=== PATIENT | female | born 1995 | race African-American/Black ===

== ENCOUNTER 2022-04-26 09:58 | Emergency (ER) | payer OTHER, SELFPAY ==
[2022-04-26 10:33] VITALS: BP 117/73; PULSE 97; RESP 19; TEMP 36.6; O2SAT 99; BMI 19.8
[2022-04-26 11:36] LABS: Alanine Aminotransferase 11 U/L (0-31); Albumin Level 4.5 g/dL (3.5-5.0); Alkaline Phosphatase 66 U/L (39-117); Anion Gap 9 (12-20); Aspartate Amino Transferase 17 U/L (5-31); Bilirubin Direct 0.3 mg/dL (0.0-0.5); Bilirubin Total 0.8 mg/dL (0.0-1.0); Blood Urea Nitrogen 10 mg/dL (9-16); Calcium 9.3 mg/dL (8.4-10.2); Carbon Dioxide 25 mmol/L (22-29); Chloride 105 mmol/L (96-108); Creatinine Clr Calc Pharmacy 98.2; Estimated Glomerular Filt Rate > 60; Glucose Random 91 mg/dL (60-115); Lipase 10 U/L (8-78); Potassium 4.4 mmol/L (3.3-5.1); Sodium 135 mmol/L (135-145); Total Protein 7.7 g/dL (6.5-8.0)
== END 2022-04-26 20:56 | disposition left against medical advice (07) ==
LOC: HO.ED 12:11
PROVIDERS: Emergency Provider Emergency Medicine
DX: R10.13 Epigastric pain (principal); Z79.899 Other long term (current) drug therapy
CPT/HCPCS: 36415; 80048; 80076; 83690; 99282; 99283

== ENCOUNTER 2023-09-22 13:59 | Outpatient (AMB) | payer BC, SELFPAY ==
[2023-09-22 14:01] VITALS: BP 112/70; PULSE 90; O2SAT 99; BMI 22.3
--- NOTE | 2023-09-22 14:01 | A.OFFPC_ITS ---
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 Allergies Unable to Assess Allergy (Verified 09/22/23 14:17) Medication List - Last Reconciled 09/22/23 by SEGUNDO Bustos No Known Home Meds Tobacco use date assessed: 09/22/23 Dental Screening Dental Screen Date: 09/22/23 Did you have a dental visit in the last 12 months?: Yes Did you have a dental problem in the last 6 months where you did not have access to dental care?: No Was dental information given to patient?: Patient has dentist 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 No PCP in a while per patient. Patient [facility]. Reports tetanus vaccine within 10 years. Reports eye and dental exams up-to-date. In addition, patient reports left breast lump for over 10 years now, no discomfort, no family history of breast cancer. No shortness of breath or chest pain. [facility] Surgical History No pertinent past surgical history Family History Mother No problems noted. Father No problems noted. Social History Patient Tobacco Use Status: Never used Tobacco Cognitive needs: No Hearing needs: No Vision needs: No Questionnaire PHQ-9 Over the last 2 weeks, how often have you been bothered by any of the following problems? 1. Little interest or pleasure in doing things: not at all 2. Feeling down, depressed, or hopeless: not at all 3. Trouble falling or staying asleep, or sleeping too much: not at all 4. Feeling tired or having little energy: not at all 5. Poor appetite or overeating: not at all 6. Feeling bad about yourself - or that you are a failure or have let yourself or your family down: not at all 7. Trouble concentrating on things, such as reading the newspaper or watching television: not at all 8. Moving or speaking so slowly that other people could have noticed. Or the opposite - being so fidgety or restless that you have been moving around a lot more than usual: not at all 9. Thoughts that you would be better off or of hurting yourself in some way: not at all Total score: 0 Depression Screening Interpretation: Negative Depression Screening Done: Yes 40989 - PHQ-9 Billing: Yes Source: Developed by Drs. Fidel Higuera, Jessica Riley, Isreal Seaman and colleagues, with an educational crys from [employer]. Thrive Questionnaire Date Thrive assessed: 09/22/23 I am a: Patient What is your living situation today?: I have a steady place to live Within the past 12 months, did the food you bought not last and you didn't have the money to get more?: Never true Within the past 12 months, did you worry whether your food would run out before you got money to buy more?: Never true Do you have trouble paying for medicines?: No Do you have trouble getting transportation to medical appointments?: No Do you have trouble paying your heating and electricity bill?: No Do you have trouble taking care of your child, family member or friend?: No Do you have trouble with day-to-day activities such as bathing, preparing meals, shopping, managing finances, etc.?: No Are you currently unemployed and looking for a job?: No Are you interested in more education?: No Currently or been in a relationship where the following occur: no concerns reported AUDIT C Alcohol Use Questionnaire (AUDIT-C) 1. How often do you have a drink containing alcohol?: 2-4 times a month 2. How many drinks containing alcohol do you have on a typical day when you are drinking?: 1 or 2 3. How often do you have six or more drinks on one occasion?: Never Total Score: 2 Score Reviewed/Action Taken: No NELSON-7 AMB Questionnaire NELSON-7 Date NELSON - 7 assessed: 09/22/23 Feeling nervous, anxious, or on edge: 0 = Not at all Not being able to stop or control worryin = Not at all Worrying too much about different things: 0 = Not at all Trouble relaxin = Not at all Being so restless that it is hard to sit still: 0 = Not at all Becoming easily annoyed or irritable: 0 = Not at all Feeling afraid as if something awful might happen: 0 = Not at all Total NELSON-7 score (0-4 normal; 5-9 mild; 10-14 moderate; 15-21 severe): 0 Source: Developed by Drs. Fidel Higuera, Jessica Riley, Isreal Seaman and colleagues, with an educational crys from [employer]. NELSON-7 Assessment Billing NELSON-7 Assessment Tool: NELSON-7 Assessment 01596 Review of Systems Const Denies body aches, Denies chills, Denies fever(s) and Denies headache(s) Eyes Denies change in vision ENT Denies dizziness, Denies otalgia, Denies headache(s), Denies nasal discharge, Denies sinus pain and Denies sore throat Card Denies chest pain, Denies edema, Denies lightheadedness and Denies dyspnea Resp Denies cough, Denies dyspnea and Denies wheezing GI Denies abdominal pain, Denies constipation, Denies diarrhea, Denies nausea and Denies vomiting Denies dysuria Musc Denies myalgias Skin/Breast Reports as per HPI and Denies rash Neuro Denies dizziness and Denies headache(s) Aller/Immun Denies wheezing Physical exam (Primary Care) Vital Signs: Last Vital Signs Pulse 90 09/22/23 14:01 BP 112/70 09/22/23 14:01 Pulse Ox 99 09/22/23 14:01 Oxygen Delivery Method Room Air 09/22/23 14:01 BMI result Body Mass Index 22.3 Tobacco/Smoking Status: Tobacco use Status Tobacco use date assessed 09/22/23 09/22/23 14:02 Patient Tobacco Use Status Never used Tobacco 09/22/23 14:02 PHQ-9: PHQ-9 Score PHQ-9: Total score 0 09/22/23 14:38 Depression Screening Interpretation: Negative Thrive Assessment: Date of Thrive Assessment Date Thrive assessed 09/22/23 09/22/23 14:02 Currently or been in a relationship where the following occur: no concerns reported Const General: cooperative and no acute distress Orientation/consciousness: patient oriented x3 [facility] Head: Yes normocephalic and Yes atraumatic Ears: TM's normal bilaterally Face and sinus: Yes sinuses nontender Mouth: oropharynx normal and moist mucous membranes Throat: Yes posterior oropharynx normal Eyes General: appearance normal, both eyes and all related structures Pupils: Equal, round and reactive pupils present EOM: EOMs intact bilaterally Neck Neck: Yes normal visual inspection, Yes full ROM and Yes no lymphadenopathy Thyroid: Thyroid normal Chest Breast/axilla inspection: normal inspection of the breasts and normal inspection of the axillae Breast/axilla palpation: normal palpation of the breasts (Right) and normal palpation of the axillae Chest/axillae images: 2 1. Left breast 10:00 o'clock nontender lump about 1 cm proximal to areola, skin intact Resp Effort & Inspection: normal respiratory effort and able to speak in complete sentences Auscultation: clear to auscultation bilaterally, no crackles, no rales, no rhonchi and no wheezes Cardio Rate: regular rate Rhythm: regular rhythm Heart sounds: S1 normal heart sound present, S2 normal heart sound present and no murmurs GI Palpation (GI): Soft to palpation, not firm, nontender, no guarding, not rigid and no hepatosplenomegaly Auscultation: normal bowel sounds General: No CVA tenderness Back/Spine/Pelvis Back: No CVA tenderness Skin General skin exam: no rashes or lesions noted Neuro General: patient oriented x3 Cranial nerves: Yes Equal, round and reactive pupils present Gait exam (Neuro): Normal gait present Extrem General: Yes full ROM and No edema Assessment and Plan Assessment & Plan (1) Left breast lump: Code(s): N63.20 - Unspecified lump in the left breast, unspecified quadrant Plan: Left breast 10:00 o'clock nontender lump about 1 cm, proximal to areola, skin intact Mammogram and ultrasound ordered (2) Adult general medical exam: Code(s): Z00.00 - Encounter for general adult medical examination without abnormal findings Plan: Repeat in 1 year Blood work ordered Orders: Orders 2 Vitamin D 25-OH Total 09/22/23 Z00.00 - Encounter for general adult medical examination without abnormal findings Complete Blood Count Auto Diff 09/22/23 Z00.00 - Encounter for general adult medical examination without abnormal findings US breast LT complete 09/22/23 N63.20 - Unspecified lump in the left breast, unspecified quadrant MM tomosynthesis diagnostic LT 09/22/23 N63.20 - Unspecified lump in the left breast, unspecified quadrant TSH reflex Free T4 09/22/23 Z00.00 - Encounter for general adult medical examination without abnormal findings Comprehensive Met. Panel 09/22/23 Z00.00 - Encounter for general adult medical examination without abnormal findings Coding Level of Care Code New Pt Prev Care 18-39yr([id number] Diagnoses Left breast lump N63.20 Adult general medical exam Z00.00 Additional Codes NELSON-7 Assessment Billing - NELSON-7 Assessment Tool: NELSON-7 Assessment 16712 ([id number])
== END 2023-09-22 14:42 | disposition home or self-care (01) ==
PROVIDERS: PCP Nurse Practitioner Family; Visit Provider Nurse Practitioner Family
DX: Z00.00 Encounter for general adult medical examination without abnormal findings (principal); N63.21 Unspecified lump in the left breast, upper outer quadrant
CPT/HCPCS: 99385

== ENCOUNTER → 2023-10-25 13:00 | Outpatient (BNV) | payer BC, SELFPAY | PROVIDERS: PCP Internal Medicine; Visit Provider Radiology Diagnostic Radiology | DX: N63.22 Unspecified lump in the left breast, upper inner quadrant (principal) | CPT/HCPCS: 76642 ==

== ENCOUNTER 2023-10-25 13:01 | Outpatient (REF) | payer BC, SELFPAY ==
--- NOTE | ~2023-10-25 | US_ITS ---
EXAMINATION: US DIAGNOSTIC ULTRASOUND BREAST, LEFT CLINICAL INFORMATION: 28-year-old female, palpable abnormality 10:00 axis left breast proximal to the areola. COMPARISON: None available. TECHNIQUE: Ultrasound of the breast is performed with real-time daley scale imaging and color Doppler. Attention was given to the upper inner quadrant of the left breast, and in specific to the palpable focus at 10:00. FINDINGS: There is a hypoechoic oval circumscribed mass in the left breast at the 10:00 axis, 3 cm from the nipple, measuring 2.2 x 1.2 x 1.8 cm. There is good through transmission. It is immediately subcutaneous. Trace color Doppler signal noted internally on color Doppler interrogation. Findings most likely represent a fibroadenoma or variant, and are correlating with the focus of palpable concern. Given the size of the mass, ultrasound-guided core biopsy recommended. Results are discussed with the patient at time of visit. US/US breast LT limited mamm only IMPRESSION: 2.2 cm probable fibroadenoma or variant in the 10:00 axis of the left breast, 3 cm from the nipple. Ultrasound-guided biopsy recommended for confirmation. This finding correlates with the focus of palpable concern. Findings and recommendations discussed with the patient. ASSESSMENT: BI-RADS 4: Suspicious RECOMMENDATION: Ultrasound-guided biopsy.
== END 2023-10-25 13:02 | disposition home or self-care (01) ==
LOC: HO.MAMMO 13:01
PROVIDERS: PCP Internal Medicine; Visit Provider Nurse Practitioner Family
DX: N63.22 Unspecified lump in the left breast, upper inner quadrant (principal)
CPT/HCPCS: 76642

== ENCOUNTER 2023-10-27 08:24 | Outpatient (AMB) | payer BC, SELFPAY ==
--- NOTE | 2023-10-27 08:27 | A.OFFVIS_ITS ---
Intake Vital Signs 10/27/23 08:37 Height 5 ft 9 in Weight 153 lb BMI 22.6 BP 106/72 Blood Pressure Location Lt brachial Position Sitting Pulse 87 Intake Visit Reasons: Lt breast US Bx 10 o'clock density Intake Note: Patient is seen in office for left breast ultrasound biopsy consult 10 o'clock density. Pt c/o: feel a lump in the left breast for years, denies increase/decrease, feels harder , denies redness, swelling, discoloration, discharge, no prior breast surgery, no children, no fm hx of breast cancer u/s:10/25/23 Ophthalmic Surgical Assistant Required: No Accompanied by: Self / Same As Patient Allergies Unable to Assess Allergy (Verified 10/27/23 08:37) HPI HPI Comments History of Present Illness Details 28-year-old female patient presenting wi th a palpable lump noted on recent physical examination. She 1st noted the lump approximately at the age of [age] years old and since this time she feels lesion may have gotten harder but not increased in size. She denies any pain, redness, discharge or other symptoms in the breast. Her family history is negative for breast cancer. She denies any previous breast problems or breast surgery. She is G0. An ultrasound of the left breast revealed a 2.2 x 1.2 x 1.8 cm mass well circumscribed, hypoechoic with good through transmission. Findings were felt to be suggestive of a fibroadenoma she is scheduled for an [facility] Surgical History No pertinent past surgical history Family History Mother No problems noted. Father No problems noted. Maternal Aunt Pancreatic cancer Social History Patient Tobacco Use Status: Never used Tobacco Cognitive needs: No Hearing needs: No Vision needs: No Female Reproductive History Menstrual Age of Menarche: 13 Date of last menstrual period: 10/27/23 Total pregnancies: 0 Review of Systems Const All systems reviewed & are unremarkable except as noted in HPI and below Denies chills, Denies fever(s), Denies headache(s), Denies poor appetite and Denies weakness ENT Denies headache(s) Card Denies chest pain, Denies irregular heart rhythm, Denies palpitations and Denies dyspnea Resp Denies cough, Denies excessive phlegm production and Denies dyspnea GI Denies abdominal pain, Denies bloating, Denies change in bowel habits, Denies constipation, Denies heartburn, Denies diarrhea, Denies nausea and Denies vomiting Denies urinary frequency Musc Denies back pain, Denies muscle weakness and Denies numbness Skin/Breast Denies changing lesions and Denies unusual bruising Neuro Denies headache(s), Denies numbness, Denies paresthesias and Denies weakness Psych Denies anxiety and Denies depression Endo Denies palpitations Wilian/Lymph Denies lymphadenopathy Physical Exam Vital Signs: Last Vital Signs Pulse 87 10/27/23 08:37 BP 106/72 10/27/23 08:37 BMI result Body Mass Index 22.6 Const General: cooperative and no acute distress Nutritional Appearance: well nourished Orientation/consciousness: patient oriented x3 Limitations: no limitations HEENT Head: Yes normocephalic and Yes atraumatic Ears: hearing grossly normal bilaterally Chest Other: Left breast: No skin change, no nipple retraction, no nipple discharge, palpable mass measuring approximately 2 cm located in the 11 o'clock to 10 o'clock position just be on the nipple-areolar complex. Lesion is quite superficial but mobile within the breast tissue. No enlarged lymph nodes. Right breast: No skin change, no nipple retraction, no nipple discharge, no pa lpable mass, no enlarged lymph nodes Resp Effort & Inspection: normal respiratory effort, no audible wheezes, no cough and no respiratory distress Cardio Jugular venous distension: no JVD GI Inspection: Yes normal to inspection Skin Other: Warm, dry, no rash Neuro General: patient oriented x3 Extrem General: Yes no clubbing, cyanosis or edema Assessment & Plan Assessment & Plan (1) Left breast lump: Code(s): N63.20 - Unspecified lump in the left breast, unspecified quadrant Qualifiers: Breast mass location: upper inner quadrant Qualified Code(s): N63.22 - Unspecified lump in the left breast, upper inner quadrant Plan 28-year-old female patient presenting with a longstanding palpable mass in the left breast. On examination this is smooth and mobile within the breast tissue suggestive of a fibroadenoma. Ultrasound of the left breast also confirms a discrete density measuring approximately 2.2 cm corresponding to the palpable density. She is scheduled for an ultrasound-guided core biopsy later today at the [facility]. She should return approximately 1 week to review the pathology results and discuss treatment options. She expressed understanding and agrees with the plan. Orders: Orders US breast ndl core biopsy LT Today N63.20 - Unspecified lump in the left breast, unspecified quadrant Coding Level of Care Code New Pt Level 4 (40918) Diagnoses Mass of upper inner quadrant of left breast N63.22 Breast mass location: upper inner quadrant
[2023-10-27 08:37] VITALS: BP 106/72; PULSE 87; BMI 22.6
== END 2023-10-27 08:52 | disposition home or self-care (01) ==
PROVIDERS: PCP Internal Medicine; Visit Provider Surgery
DX: N63.22 Unspecified lump in the left breast, upper inner quadrant (principal)
CPT/HCPCS: 99204

== ENCOUNTER → 2023-10-27 08:24 | Outpatient (BNVA) | payer BC, SELFPAY | PROVIDERS: PCP Internal Medicine; Visit Provider Surgery ==

== ENCOUNTER 2023-11-01 09:54 | Outpatient (REF) | payer BC, SELFPAY ==
--- NOTE | ~2023-11-01 | US_ITS ---
PROCEDURE: US GUIDED BREAST BIOPSY, LEFT CLINICAL INFORMATION: Subcutaneous hypoechoic mass left breast measuring 2.2 cm, probable fibroadenoma, for which biopsy was advised. COMPARISON: 10/25/2023 diagnostic left breast ultrasound. PROCEDURAL DETAILS: The details of the procedure, as well as the risks, benefits, and alternatives to the procedure were explained to the patient in detail and all of her questions were answered, after which written informed consent was obtained. Site and side were confirmed. Prior to the procedure, sonography revealed a hypoechoic circumscribed oval 2.2 cm mass just beneath the skin in the left breast 10:00 axis, 3 cm from the nipple. A time-out was performed, the lesion intended for biopsy was targeted, and the skin of the left breast was then marked, prepped and draped in the usual sterile fashion. Using sonographic guidance, sterile technique, and 1% lidocaine without epinephrine for local anesthesia, multiple core biopsies were obtained through the targeted area with a 14G spring loaded eCozyera core biopsy device. There was real-time confirmation of appropriate needle passage. Sampling was documented. At the completion of tissue sampling, a single butterfly-shaped metallic clip was deposited at the biopsy site. There was no evidence of immediate complication. SPECIMEN: 3 well formed core samples were obtained. DIGITAL POST-PROCEDURE MAMMOGRAPHY: Not performed due to patient age. Also, the lesion is somewhat obvious. The patient tolerated the procedure well and, after assuring adequate hemostasis, was discharged in good condition after reviewing postbiopsy breast care instructions. Final pathology results are pending. US/US breast ndl core biopsy LT IMPRESSION: 1. No immediate complication from ultrasound-guided percutaneous biopsy left breast 2.2 cm hypoechoic oval mass 10:00 axis. 2. Ultrasound was used to localize and guide marker clip placement. Clip appears centrally placed within the mass on ultrasound. 3. Final pathology results are pending. A separate report with final recommendations will be issued once these results are made available.
[2023-11-01] MEDS: Lidocaine HCl 1 % 20 ML VIAL 9 ML SUBCUT (11:03)
[2023-11-01] MEDS: Sodium Bicarbonate 8.4% 50 MEQ/50 ML VIAL SUBCUT (11:07)
== END 2023-11-01 09:55 | disposition home or self-care (01) ==
LOC: HO.MAMMO 09:54
PROVIDERS: PCP Internal Medicine; Visit Provider Surgery
DX: N63.22 Unspecified lump in the left breast, upper inner quadrant (principal)
CPT/HCPCS: 19083; 88305; A4648; C1894

== ENCOUNTER → 2023-11-01 10:00 | Outpatient (BNV) | payer BC, SELFPAY | PROVIDERS: PCP Internal Medicine; Visit Provider Radiology Diagnostic Radiology | DX: D24.2 Benign neoplasm of left breast (principal) | CPT/HCPCS: 19083 ==

== ENCOUNTER 2023-11-08 10:33 | Outpatient (AMB) | payer BC, SELFPAY ==
[2023-11-08 10:45] VITALS: BP 90/60; BMI 22.5
--- NOTE | 2023-11-08 10:45 | MHC.OFFVIS ---
Intake Vital Signs 11/08/23 10:45 Height 5 ft 9 in Weight 152 lb 1.903 oz BMI 22.5 BP 90/60 Blood Pressure Location Lt brachial Position Sitting Intake Visit Reasons: LT breast mass, US bx results Intake Note: Patient is seen in office for ultrasound biopsy results, following left breast mass. 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 She 1st noted the lump approximately at the age of [age] years old and since this time she feels lesion may have gotten harder but not increased in size. She denies any pain, redness, discharge or other symptoms in the breast. Her family history is negative for breast cancer. She denies any previous breast problems or breast surgery. She is G0. An ultrasound of the left breast revealed a 2.2 x 1.2 x 1.8 cm mass well circumscribed, hypoechoic with good through transmission. Findings were felt to be suggestive of a fibroadenoma. She was scheduled for a ultrasound-guided needle core biopsy on 11/01/2023. Pathology revealed: Benign fibroepithelial lesion. See comment. COMMENT: The stromal component is quite prominent and has a bit of a myxoid appearance. No atypia is identified. The differential diagnosis includes a fibroadenoma with an intracanalicular growth pattern and, less likely, a benign phyllodes tumor. Please correlate with clinical and imaging findings [facility] Surgical History No pertinent past surgical history Family History Mother No problems noted. Father No problems noted. Maternal Aunt Pancreatic cancer Social History Patient Tobacco Use Status: Never used Tobacco Cognitive needs: No Hearing needs: No Vision needs: No Female Reproductive History Menstrual Age of Menarche: 13 Review of Systems Const All systems reviewed & are unremarkable except as noted in HPI and below Physical Exam Vital Signs: Last Vital Signs BP 90/60 11/08/23 10:45 BMI result Body Mass Index 22.5 Const General: cooperative and no acute distress Nutritional Appearance: well nourished Orientation/consciousness: patient oriented x3 Limitations: no limitations HEENT Head: Yes normocephalic and Yes atraumatic Ears: hearing grossly normal bilaterally Chest Other: Left breast: No skin change, no nipple retraction, no nipple discharge, palpable mass measuring approximately 2 cm located in the 11 o'clock to 10 o'clock position just be on the nipple-areolar complex. Lesion is quite superficial but mobile within the breast tissue. No enlarged lymph nodes. Right breast: No skin change, no nipple retraction, no nipple discharge, no palpable mass, no enlarged lymph nodes Resp Effort & Inspection: normal respiratory effort, no audible wheezes, no cough and no respiratory distress Cardio Jugular venous distension: no JVD GI Inspection: Yes normal to inspection Skin Other: Warm, dry, no rash Neuro General: patient oriented x3 Extrem General: Yes no clubbing, cyanosis or edema Assessment & Plan Assessment & Plan (1) Left breast lump: Code(s): N63.20 - Unspecified lump in the left breast, unspecified quadrant Qualifiers: Breast mass location: upper inner quadrant Qualified Code(s): N63.22 - Unspecified lump in the left breast, upper inner quadrant Plan 28-year-old female patient presenting with a palpable mass in the left breast, status post ultrasound-guided core biopsy. 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 I reviewed the pathology results and provided her with a copy of the report. We discussed excision of this possible phyllodes tumor as the safest option and after discussion of the procedure, risks, and alternatives, she consents to a left breast lumpectomy to be performed as a short-stay surgery. Coding Level of Care Code Est Pt Level 4 (87715) Diagnoses Mass of upper inner quadrant of left breast N63.22 Breast mass location: upper inner quadrant
== END 2023-11-08 10:59 | disposition home or self-care (01) ==
PROVIDERS: PCP Internal Medicine; Visit Provider Surgery
DX: N63.22 Unspecified lump in the left breast, upper inner quadrant (principal)
CPT/HCPCS: 99214

== ENCOUNTER → 2023-11-08 10:33 | Outpatient (BNVA) | payer BC, SELFPAY | PROVIDERS: PCP Internal Medicine; Visit Provider Surgery ==

== ENCOUNTER 2023-11-23 06:13 | Day surgery (SDC) | payer BC, SELFPAY ==
[2023-11-21 09:13] VITALS: BMI 22.3
--- NOTE | 2023-11-22 08:46 | HO.ANESPROP2 ---
Documented by User: Yoana Cueto NP 11/22/23 08:46 HPI - Anesthesia Eval Consult details Narrative: 28yo F for Left Breast Lumpectomy PMFSH Active Problems Active Problems: All Active Problems (Updated 10/27/23 @ 08:52 by Montez Stewart MD) Left breast lump (Acute) Adult general medical exam (Acute) Family History Family History Mother No problems noted. Father No problems noted. Maternal Aunt Pancreatic cancer Surgical History Surgical History (Updated 11/23/23 @ 06:21 by Patricia Garnett RN) History of wisdom tooth extraction No pertinent past surgical history Social History Social History Patient Tobacco Use Status: Never used Tobacco Use of substances other than those prescribed or required for medical reasons: No Are you DNR?: No Advance Directives: No Advance Directives Information Provided: Yes Cognitive needs: No Hearing needs: No Vision needs: No Meds Allergies Allergy/AdvReac Type Severity Reaction Status Date / Time No Known Allergies Allergy Verified 11/08/23 10:46 Home Medications Medication Instructions Recorded Confirmed Last Taken Type No Known Home Meds 09/22/23 11/08/23 Unknown History Exam Height,Weight and Vital Signs: Height 5 ft 9 in Weight 68.492 kg Assessment and Plan Assessment Anesthesia Assessment: Chart Reviewed Documented by User: Alirio Rouse MD 11/23/23 06:56 PMFSH Family History Family History Mother No problems noted. Father No problems noted. Maternal Aunt Pancreatic cancer Family history of problems with anesthesia: No Surgical History Surgical History (Updated 11/23/23 @ 06:21 by Patricia Garnett RN) History of wisdom tooth extraction No pertinent past surgical history History of Problems with Anesthesia: No Social History Social History Patient Tobacco Use Status: Never used Tobacco Use of substances other than those prescribed or required for medical reasons: No Are you DNR?: No Advance Directives: No Advance Directives Information Provided: Yes Cognitive needs: No Hearing needs: No Vision needs: No Meds Allergies Allergy/AdvReac Type Severity Reaction Status Date / Time No Known Allergies Allergy Verified 11/08/23 10:46 Home Medications Medication Instructions Recorded Confirmed Last Taken Type No Known Home Meds 09/22/23 11/08/23 Unknown History Exam Airway Mallampati Class: II TM Dist: >3cm Neck ROM: Full Loose/Missing/Broken Teeth: No Heart: rrr Lungs: cta b/l Assessment and Plan Assessment Anesthesia Assessment: Anesthesia Plan Discussed and Chart Reviewed Final Anesthetic Review Family History of Problems with Anesthesia: No History of Problems with Anesthesia: No NPO: Yes ASA Class: I Final Preanesthetic Review: No Changes in Pt Med Stat, Consent Obtained/Reviewed and Anes Risks/Benef Reviewed Patient Risk: Low Procedure Risk: Low Anesthetic Plan Anesthetic Plan: GA and Agree w/ Assess. and Plan Disposition: Standard PACU
[2023-11-23] VITALS (13 sets, daily range): BP systolic 79–109; BP diastolic 52–63; PULSE 77–96; RESP 16–18; TEMP 36.4–37.1; O2SAT 98–100; BMI 23.9
[2023-11-23 06:38] LABS: UPreg QC Valid YES; Urine Pregnancy NEGATIVE (NEGATIVE)
[2023-11-23] MEDS: Lactated Ringers 1,000 ML 100 ML IVCONT (07:04)
--- NOTE | 2023-11-23 07:21 | MHC.SHP ---
Pre-Procedural Eval Section A - 24 Hr Update-Section A only Date of Service: 11/23/23 The patient is an INPATIENT: No Changes since office visit: Yes Patient answered all questions; No Cold of Flu in the past 2 weeks, No New Medical Problems and No Changes in Medication The patient has been examined within 24 hours of the surgical procedure. The History & Physical has been completed within 30 days and I have reviewed it.: Yes Section B - Complete if H&P > 30 days Chief Complaint: Unspecified lump in the left breast, upper inner q Allergies: Allergies Allergy/AdvReac Type Severity Reaction Status Date / Time No Known Allergies Allergy Verified 11/08/23 10:46 Plan Diagnosis/Plan: Unchanged I have reviewed the history and physical and performed a pertinent physical examination on my patient. No changes have occurred unless specified. Time Spent With Patient Time: Total time managing care of this patient today ____ minutes.
--- NOTE | 2023-11-23 08:13 | W.PM.OPN ---
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 Recent biopsy revealed a probable fibroadenoma although phyllodes tumor was a possibility. After discussion of the options the patient has decided for lumpectomy. Operative findings: Palpable mass in the left breast 11:00 o'clock, path pending Specimen: Left breast lump Estimated blood loss: 2 mL Complications: None Procedure details: Patient was brought to the OR placed in a supine position. After administering general anesthesia the patient's left breast was prepped with ChloraPrep and draped in a sterile fashion. A surgical time-out was called the consent confirmed. Patient received preoperative antibiotics and Venodyne boots were in place. Local anesthesia was infiltrated in a curvilinear fashion along the areolar border. This was done from the 10 to 12 o'clock position. Incision was then made with a 15 blade and carried out through subcutaneous tissue. Superior and inferior skin flaps were then created with electrocautery. Dissection was continued using both sharp and electrocautery dissection to remove the entire palpable lump. This was sent to pathology for further examination. Hemostasis was assured using electrocautery. Wounds were irrigated with saline solution and suctioned dry. Deep breast tissue was then reapproximated using interrupted 3-0 Polysorb sutures. Dermis was reapproximated using interrupted 3-0 Polysorb sutures. Skin was then closed using a running subcuticular 4-0 Polysorb suture. Steri-Strips, 2 x 2 gauze and Tegaderm were then applied. The patient tolerated the procedure well. Sponge, instrument, and needle counts reported as correct. The patient was transferred to PACU in stable condition.
[2023-11-23] MEDS: fentaNYL citrate/PF 100 MCG/2 ML VIAL 25 MCG IVPUSH (08:55)
[2023-11-23] MEDS: oxyCODONE HCl Immed Release 5 MG TABLET PO (09:18)
== END 2023-11-23 11:07 | disposition home or self-care (01) ==
PROVIDERS: Nurse Practitioner; PCP Internal Medicine; Visit Provider Surgery
PROC: (CPT 19301; principal; 2023-11-23 07:30)
DX: N63.22 Unspecified lump in the left breast, upper inner quadrant (principal); D24.2 Benign neoplasm of left breast
CPT/HCPCS: 19301; 81025; 88305; 88307; J0131; J0665; J0690; J2250; J2405; J2704; J3010

== ENCOUNTER → 2023-11-23 06:13 | Outpatient (BNV) | payer BC, SELFPAY | PROVIDERS: PCP Internal Medicine; Visit Provider Surgery | DX: N63.22 Unspecified lump in the left breast, upper inner quadrant (principal) | CPT/HCPCS: 19301 ==

== ENCOUNTER 2023-12-01 10:00 | Outpatient (AMB) | payer BC, SELFPAY ==
--- NOTE | 2023-12-01 10:25 | A.OFFVIS_ITS ---
Intake Vital Signs 12/01/23 10:31 Height 5 ft 8 in Weight 156 lb BMI 23.7 BP 110/71 Blood Pressure Location Lt brachial Position Sitting Pulse 102 H Intake Visit Reasons: S/p Left breast lumpectomy Intake Note: Patient is seen in office for post op assessment post left breast lumpectomy. Pt c/o: admits to sore, tender, bruise, denies redness, discharge or other concerns Op:11/23/23 Mercury Washer Required: No Accompanied by: Self / Same As Patient Allergies No Known Allergies Allergy (Verified 11/08/23 10:46) HPI HPI Comments History of Present Illness Details 28-year-old female patient presenting wi th a palpable lump noted on recent physical examination. She 1st noted the lump approximately at the age of [age] years old and since this time she feels lesion may have gotten harder but not increased in size. She denies any pain, redness, discharge or other symptoms in the breast. Her family history is negative for breast cancer. She denies any previous breast problems or breast surgery. She is G0. An ultrasound of the left breast revealed a 2.2 x 1.2 x 1.8 cm mass well circumscribed, hypoechoic with good through transmission. Findings were felt to be suggestive of a fibroadenoma. She was scheduled for a ultrasound-guided needle core biopsy on 11/01/2023. Pathology revealed: Benign fibroepithelial lesion. See comment. COMMENT: The stromal component is quite prominent and has a bit of a myxoid appearance. No atypia is identified. The differential diagnosis includes a fibroadenoma with an intracanalicular growth pattern and, less likely, a benign phyllodes tumor. Please correlate with clinical and imaging findings She subsequently underwent a left breast lumpectomy performed 1 week ago on 11/23/2023. She returns today for wound check. Pathology results are pending although in communication with Dr. Garcia, findings do appear consistent with a benign phyllodes tumor. He has sent the specimen to [facility] for further examination. She tolerated the surgery well and denies any ongoing breast symptoms at this time. [facility] Surgical History History of lumpectomy of left breast (11/23/23) History of wisdom tooth extraction Family History Mother No problems noted. Father No problems noted. Maternal Aunt Pancreatic cancer Social History Patient Tobacco Use Status: Never used Tobacco Cognitive needs: No Hearing needs: No Vision needs: No Female Reproductive History Menstrual Age of Menarche: 13 Physical Exam Vital Signs: Last Vital Signs Pulse 102 H 12/01/23 10:31 BP 110/71 12/01/23 10:31 BMI result Body Mass Index 23.7 Const General: comfortable Nutritional Appearance: well nourished Orientation/consciousness: patient oriented x3 Limitations: no limitations Chest Other: Left breast incision is clean, dry, and intact. Steri-Strips remain in place. There is a small amount of ecchymosis in the upper inner quadrant. Resp Effort & Inspection: normal respiratory effort Skin Other: Warm, dry, no rash Neuro General: patient oriented x3 Assessment & Plan Assessment & Plan (1) Benign phyllodes tumor of left breast: Code(s): D24.2 - Benign neoplasm of left breast Plan 28-year-old female patient with a probable benign phyllodes tumor of the left breast status post excision. I reviewed the pathology results and discuss possible treatment options. We will await the final pathology from [facility]. She will follow-up in 3 months for routine breast examination. I will call her with the results once available. Coding Level of Care Code Global (62096) Diagnoses Benign phyllodes tumor of left breast D24.2
[2023-12-01 10:31] VITALS: BP 110/71; PULSE 102; BMI 23.7
== END 2023-12-01 10:47 | disposition home or self-care (01) ==
PROVIDERS: PCP Internal Medicine; Visit Provider Surgery
DX: D24.2 Benign neoplasm of left breast (principal)
CPT/HCPCS: 99024

== ENCOUNTER → 2023-12-01 10:00 | Outpatient (BNVA) | payer BC, SELFPAY | PROVIDERS: PCP Internal Medicine; Visit Provider Surgery | DX: N63.22 Unspecified lump in the left breast, upper inner quadrant (principal) ==

== ENCOUNTER 2024-03-01 10:12 | Outpatient (AMB) | payer BC, SELFPAY ==
--- NOTE | 2024-03-01 10:13 | MHC.OFFVIS ---
Vital Signs 03/01/24 10:24 Height 5 ft 8 in Weight 69 lb 6 oz BMI 10.5 BP 126/59 L Blood Pressure Location Lt brachial Position Sitting Pulse 95 Intake Visit Reasons: 3 month follow up, breast exam Intake Note: Patient is seen in office for 3 month follow up visit, breast exam. 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 She 1st noted the lump approximately at the age of [age] years old and since this time she feels lesion may have gotten harder but not increased in size. She denies any pain, redness, discharge or other symptoms in the breast. Her family history is negative for breast cancer. She denies any previous breast problems or breast surgery. She is G0. An ultrasound of the left breast revealed a 2.2 x 1.2 x 1.8 cm mass well circumscribed, hypoechoic with good through transmission. Findings were felt to be suggestive of a fibroadenoma. She was scheduled for a ultrasound-guided needle core biopsy on 11/01/2023. Pathology revealed: Benign fibroepithelial lesion. See comment. COMMENT: The stromal component is quite prominent and has a bit of a myxoid appearance. No atypia is identified. The differential diagnosis includes a fibroadenoma with an intracanalicular growth pattern and, less likely, a benign phyllodes tumor. Please correlate with clinical and imaging findings She subsequently underwent a left breast lumpectomy performed on 11/23/2023. She returns today for wound check. Path results are suggestive of a benign phyllodes tumor. This was evaluated in [place] as well and no wider excision felt to be required. She returns today for a three-month check. She does note some hardness in the incision but generally denies any pain. [facility] Surgical History History of lumpectomy of left breast (11/23/23) History of wisdom tooth extraction Family History Mother No problems noted. Father No problems noted. Maternal Aunt Pancreatic cancer Social History Patient Tobacco Use Status: Never used Tobacco Cognitive needs: No Hearing needs: No Vision needs: No Female Reproductive History Menstrual Age of Menarche: 13 Review of Systems Const All systems reviewed & are unremarkable except as noted in HPI and below Physical Exam Const General: comfortable Nutritional Appearance: well nourished Orientation/consciousness: patient oriented x3 Limitations: no limitations Chest Other: Left breast incision is clean, dry, and intact. Wound is well healed with a small healing ridge remaining. No palpable phyllodes tumor is appreciated. No other palpable mass noted. Resp Effort & Inspection: normal respiratory effort Skin Other: Warm, dry, no rash Neuro General: patient oriented x3 Assessment & Plan Assessment & Plan (1) Benign phyllodes tumor of left breast: Code(s): D24.2 - Benign neoplasm of left breast Category: Medical Plan 28-year-old female patient with a previous history of a benign phyllodes tumor of the left breast status post lumpectomy. Her wounds are clean and intact with residual healing ridge but no evidence of recurrent disease. I recommended she continue monthly self examinations. She is welcome to call for any new concerns. Coding Level of Care Code Est Pt Level 3 (33594) Diagnoses Benign phyllodes tumor of left breast D24.2
[2024-03-01 10:24] VITALS: BP 126/59; PULSE 95; BMI 10.5
== END 2024-03-01 10:27 | disposition home or self-care (01) ==
PROVIDERS: PCP Internal Medicine; Visit Provider Surgery
DX: D24.2 Benign neoplasm of left breast (principal)
CPT/HCPCS: 99213

== ENCOUNTER → 2024-03-01 10:12 | Outpatient (BNVA) | payer BC, SELFPAY | PROVIDERS: PCP Internal Medicine; Visit Provider Surgery | DX: N63.22 Unspecified lump in the left breast, upper inner quadrant (principal) ==

== ENCOUNTER 2024-07-25 11:36 | Outpatient (AMB) | payer BC, SELFPAY ==
[2024-07-25 11:45] VITALS: BP 100/68; BMI 23.3
--- NOTE | 2024-07-25 11:45 | A.OFFVIS_ITS ---
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 [facility] for [facility]Ds. Her last period came last Tuesday in it ended on Tuesday and her periods are very regular and she tracks them and a track she does not want to talk about any method of control and does not need control she says she sometimes uses condoms. She has had BV in the past but has no symptoms of it now. Sometime recently she had what appeared to be a cold sore on her lip and [facility] and she said they did a lot of blood work and said that it was not but they given her a cream that caused her lips to swell She said she had a breast mass removed last year she had had it for a long time but the surgery went well and it was non cancerous. 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 She works out in the gym and has a on air personality every morning she eats very well and her small engine trainer advises her dietary adjustments. [facility] Surgical History (Updated 07/25/24 @ 12:34 by Terri Snell CNM) History of lumpectomy of left breast (11/23/23) History of wisdom tooth extraction Family History Mother No problems noted. Father No problems noted. Maternal Aunt Pancreatic cancer Social History Patient Tobacco Use Status: Never used Tobacco Cognitive needs: No Hearing needs: No Vision needs: No Female Reproductive History Menstrual Age of Menarche: 13 Duration of menses: 3-5 days Date of last menstrual period: 07/20/24 control method: none Total pregnancies: 0 History of abnormal pap smear: No (no previous pap) Physical Exam Vital Signs: Last Vital Signs BP 100/68 07/25/24 11:45 BMI result Body Mass Index 23.3 Const General: healthy appearing, comfortable, no acute distress, well developed and alert Nutritional Appearance: average body habitus Orientation/consciousness: patient oriented x3 Limitations: no limitations HEENT Head: Yes normocephalic Neck Neck: Yes normal visual inspection Chest Chest palpation & inspection: normal inspection of the chest Breast/axilla inspection: normal inspection of the breasts and normal inspection of the axillae Breast/axilla palpation: normal palpation of the breasts and normal palpation of the axillae Resp Effort & Inspection: normal respiratory effort GI Inspection: Yes normal to inspection, No Abdominal wall edema and No distended Palpation (GI): Soft to palpation and nontender Other: External exam within normal limits vagina pink and moist evidence of recent menses. Cervix nulliparous long close the pink mobile nontender friable with Pap. Uterus small midposition nontender adnexa nontender very good tone Kegel. General: Yes bladder normal to palpation External Female Exam: normal external appearance and normal appearance of the urethra Speculum Exam - Vagina: normal appearance of the vagina, normal palpation and normal vaginal discharge Speculum Exam - Cervix: normal appearance of the cervix, normal palpation and nontender Bimanual exam- vagina & uterus: normal bimanual exam, normal palpation, uterine size normal, bladder normal to palpation, consistency normal, normal palpation, uterine mobility normal, uterine shape normal, No Cervical tenderness present, non-tender and no cervical motion tenderness Bimanual Exam- Adnexa, other: normal adnexae, no masses, normal and No adnexal tenderness Neuro General: patient oriented x3 Assessment & Plan Assessment & Plan (1) Screening for cervical cancer: Code(s): Z12.4 - Encounter for screening for malignant neoplasm of cervix Category: Medical (2) Well woman exam with routine gynecological exam: Code(s): Z01.419 - Encounter for gynecological examination (general) (routine) without abnormal findings Category: Medical (3) Uses condoms for control: Code(s): Z78.9 - Other specified health status Category: Social Hx Plan -----Discussed in this visit the following: healthy balanced diet, regular and consistent exercise, getting recommended health screens, doing the best she can for her particular health concerns, kegel exercises, pap smear screening and followup recommendations, mammography screening and SBE, normal changes in cycles in her life stage--- . Teaching done around cervical cancer screening in the HPV vaccine she does think she got vaccinated she was told that she should get checked to see if all her vaccinations are up-to-date so she tends to have a discussion with her primary care provider about that as it seems that 1 of the titers must have shown some lack of immunity. Discussed cervical cancer screening guidelines and how they have changed over the years and rationale for longer times between screening test. Teaching was done around HSV both oral and genital and natural history of same and how it is shared between human beings and usual testing regimens and treatments. Discussed factors that can lead to recurrences of outbreaks for general information purposes. She is not interested in any control method and did not want to discuss any other methods if she got she would either continue the or [facility] and she has access Discussed that we do not have a birthing center [facility] and that young women with the 1st would be well advised to seek care at [facility] for there care from the very start and discussed the very many excellent practices available at [facility] for this. Discussed intervals for cervical cancer screening which would be next for her in 3 years though we do say come back every year for poured concrete wall technician exams for much the same discussion as today. Coding Level of Care Code New Pt Prev Care 18-39yr([id number] Diagnoses Screening for cervical cancer Z12.4 Well woman exam with routine gynecological exam Z01.419 Uses condoms for control Z78.9
== END 2024-07-25 12:30 | disposition home or self-care (01) ==
PROVIDERS: PCP Internal Medicine; Visit Provider Advanced Practice Midwife
DX: Z12.4 Encounter for screening for malignant neoplasm of cervix (principal); Z01.419 Encounter for gynecological examination (general) (routine) without abnormal findings; Z78.9 Other specified health status
CPT/HCPCS: 99385

== ENCOUNTER 2024-07-25 11:36 | Outpatient (REF) | payer BC, SELFPAY ==
[2024-07-26 05:49] LABS: CT PCR NOT DETECTED (Not Detect.); NG PCR NOT DETECTED (Not Detect.)
[2024-07-26 10:47] LABS: Bacterial Vaginosis PCR NEGATIVE (Negative); Candida Group PCR DETECTED (Not Detect); Candida glab krusei PCR NOT DETECTED (Not Detect); Trichomonas vaginalis PCR NOT DETECTED (Not Detect)
== END 2024-07-25 11:37 | disposition home or self-care (01) ==
LOC: HO.LAB 11:36
PROVIDERS: PCP Internal Medicine; Visit Provider Advanced Practice Midwife
DX: N89.8 Other specified noninflammatory disorders of vagina (principal); Z20.2 Contact with and (suspected) exposure to infections with a predominantly sexual mode of transmission
CPT/HCPCS: 0352U; 36415; 87491; 87591; 87625; 88175

== ENCOUNTER 2024-09-12 11:39 | Outpatient (AMB) | payer BC, SELFPAY ==
[2024-09-12 11:49] VITALS: BP 116/70; PULSE 80; O2SAT 97; BMI 23.4
--- NOTE | 2024-09-12 11:49 | A.OFFPC_ITS ---
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 She noticed a recurrent lesion on her lip, characterized by a white discoloration, which comes and goes without any apparent reason. The lesion is not associated with pain, tenderness, or crusting but has been persistent over time. The patient has attempted topical treatments, including a cream assumed to treat cold sores, which led to irritation and swelling, prompting discontinuation. Past consultations suggested seeing a bag hanger as the lesion may not be a simple cold sore. Additionally, the patient reports being advised of low hepatitis B titers and the need for a vaccination. She does not report any significant medical conditions other than recurrent yeast infections following a recent Pap smear. [facility] Surgical History History of lumpectomy of left breast (11/23/23) History of wisdom tooth extraction Family History Mother No problems noted. Father No problems noted. Maternal Aunt Pancreatic cancer Social History (Updated 09/12/24 @ 12:00 by Maame Swain MD) Housing: Apartment Alcohol intake: current Alcohol intake frequency: a few times a month Alcohol type: hard liquor Patient Tobacco Use Status: Never used Tobacco service: No Current occupational status: employed Cognitive needs: No Hearing needs: No Vision needs: No Female Reproductive History Menstrual Age of Menarche: 13 Questionnaire Thrive Questionnaire Date Thrive assessed: 09/22/23 AUDIT C Alcohol Use Questionnaire (AUDIT-C) 1. How often do you have a drink containing alcohol?: 2-4 times a month 2. How many drinks containing alcohol do you have on a typical day when you are drinking?: 1 or 2 3. How often do you have six or more drinks on one occasion?: Never Total Score: 2 Score Reviewed/Action Taken: No NELSON-7 AMB Questionnaire NELSON-7 Date NELSON - 7 assessed: 09/22/23 Source: Developed by Drs. Fidel Higuera, Jessica Riley, Isreal Seaman and colleagues, with an educational crys from [employer]. Review of Systems Const All systems reviewed & are unremarkable except as noted in HPI and below Card Denies chest pain at rest, Denies chest pain with activity, Denies edema, Denies irregular heart rhythm, Denies claudication, Denies dyspnea, Denies dyspnea on exertion, Denies orthopnea, Denies paroxysmal nocturnal dyspnea and Denies slow heart rate Resp Denies cough, Denies dyspnea and Denies dyspnea on exertion GI Denies abdominal pain, Denies change in bowel habits, Denies excessive flatus, Denies nausea and Denies vomiting Skin/Breast Reports lesions Physical exam (Primary Care) Vital Signs: Last Vital Signs Pulse 80 09/12/24 11:49 BP 116/70 09/12/24 11:49 Pulse Ox 97 09/12/24 11:49 Oxygen Delivery Method Room Air 09/12/24 11:49 BMI result Body Mass Index 23.4 Tobacco/Smoking Status: Tobacco use Status Tobacco use date assessed 09/12/24 09/12/24 11:55 Patient Tobacco Use Status Never used Tobacco 09/12/24 12:00 Thrive Assessment: Date of Thrive Assessment Date Thrive assessed 09/22/23 09/12/24 11:55 [facility] Mouth: lip abnormal (upper lip papular lesion) Resp Effort & Inspection: normal respiratory effort Auscultation: clear to auscultation bilaterally Cardio Jugular venous distension: no JVD Rate: regular rate Rhythm: regular rhythm Heart sounds: S1 normal heart sound present and S2 normal heart sound present Extrem General: Yes full ROM Coding Level of Care Code Est Pt Level 3 (67977) Complex EM visit Add On G2211 Diagnoses Lip lesion K13.0 Seborrheic dermatitis of scalp L21.9 Time Spent (min) 19 Assessment & Plan Assessment & Plan (1) Lip lesion: Code(s): K13.0 - Diseases of lips Category: Medical (2) Seborrheic dermatitis of scalp: Code(s): L21.9 - Seborrheic dermatitis, unspecified Category: Medical Plan - Lip Lesion: Referral to dermatology for further evaluation to rule out other dermatological conditions. - Hepatitis B: Administer hepatitis B vaccination due to low immunity levels. - Seborrheic Dermatitis: Prescription for a medicated shampoo to manage scalp symptoms. Patient was informed and verbally consented to the use of an ambient scribe for clinic note documentation during this visit. I discussed the recurrent lip lesion with the patient, emphasizing the importance of specialist evaluation for proper diagnosis, considering differential possibilities such as chronic dermatological conditions which could not be identified as a cold sore. I advised the patient on the intention to consult with a bag hanger for further examination and potential biopsy. Additionally, I confirmed the recommendation for a hepatitis B vaccination due to low titers to ensure immunity. We also addressed seborrheic dermatitis and the plan to initiate treatment with a prescribed shampoo to manage symptoms. Orders: Orders Complete Blood Count Auto Diff 09/12/24 K13.0 - Diseases of lips Comprehensive Met. Panel 09/12/24 K13.0 - Diseases of lips Referrals Dermatology Referral K13.0 - Diseases of lips Medications: New selenium sulfide 2.25% massage into affected area; leave on for 10 mins ; rinse off thoroughly 1 appl topical DAILY 180 mL 1RF 30 days K13.0 - Diseases of lips, L21.9 - Seborrheic dermatitis, unspecified Patient Instructions: - Follow up with dermatology for assessment of the lip lesion. - Receive the hepatitis B vaccine as advised. - Use the prescribed shampoo as directed for scalp condition. - Report any changes or concerns with skin lesions immediately.
== END 2024-09-12 12:09 | disposition home or self-care (01) ==
PROVIDERS: PCP Internal Medicine; Visit Provider Internal Medicine
DX: K13.0 Diseases of lips (principal); L21.9 Seborrheic dermatitis, unspecified

== ENCOUNTER 2024-10-23 14:25 | Outpatient (REF) | payer BC, SELFPAY ==
[2024-10-23 16:08] LABS: MANUAL DIFF FLAG NO
[2024-10-23 16:17] LABS: Basophils Absolute Auto 0.1 X10*3/uL (0.0-0.2); Eosinophils Absolute Auto 0.1 X10*3/uL (0.0-0.4); Eosinophils Percent Auto 1.2 % (0-4); Hematocrit 31.9 % (37.0-47.0); Hemoglobin 10.7 g/dl (12.0-16.0); Imm Gran Abs Auto 0.01 X10*3/uL (0.00-0.03); Imm Gran Pct Auto 0.2 % (0.0-0.4); Lymphocytes Absolute Auto 1.8 X10*3/uL (1.2-4.9); Lymphocytes Percent Auto 36.5 % (20-40); Mean Corpuscular HGB Conc 33.5 g/dl (31.0-35.0); Mean Corpuscular Volume 80.4 fL (80.0-98.0); Monocytes Absolute Auto 0.3 X10*3/uL (0.1-1.2); Neutrophils Absolute Auto 2.7 x10*3/uL (2.0-8.3); Neutrophils Percent Auto 55.1 % (45-73); Platelet Count 259 X10*3/uL (160-400); Red Blood Count 3.97 X10*6/uL (4.20-5.50); Red Cell Distribution Width 14.1 % (11.0-16.0); White Blood Count 4.9 X10*3/uL (4.8-10.8)
[2024-10-23 17:11] LABS: Alanine Aminotransferase 12 U/L (0-31); Albumin Level 4.1 g/dL (3.5-5.0); Anion Gap 9 (12-20); Aspartate Amino Transferase 30 U/L (5-31); Bilirubin Total 0.6 mg/dL (0.0-1.0); Blood Urea Nitrogen 8 mg/dL (9-16); Carbon Dioxide 23 mmol/L (22-29); Chloride 112 mmol/L (96-108); Estimated Glomerular Filt Rate > 60; Glucose Random 87 mg/dL (60-115); Potassium 3.7 mmol/L (3.3-5.1); Sodium 140 mmol/L (135-145); Total Protein 7.3 g/dL (6.5-8.0)
[2024-10-23 17:22] LABS: Alkaline Phosphatase 66 U/L (39-117)
== END 2024-10-23 14:26 | disposition home or self-care (01) ==
LOC: HO.HMGCLDS 14:25
PROVIDERS: PCP Internal Medicine; Visit Provider Internal Medicine
DX: K13.0 Diseases of lips (principal)
CPT/HCPCS: 36415; 80053; 85025

== ENCOUNTER 2025-07-31 11:02 | Outpatient (AMB) | payer MEDICAID, SELFPAY ==
[2025-07-31 11:03] VITALS: BP 110/66; BMI 23.2
--- NOTE | 2025-07-31 11:03 | MHC.OFFVIS ---
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 She works out with a director personal and she eats very healthy and takes care of herself she uses condoms she is open to STI testing just to be sure occasionally she has bacterial vaginosis she has found a regime of condom use as well as a gentle vaginal wash the same brand is produces the boric acid capsules and she uses that gently after her period and finds that works well for her she has no other complaints she was on control pills in the past and no matter what she did she was nauseous with them she does also remember that when she was young and was running track and she was less weight she was not getting periods that were very heavy more than just a little spotting. [facility] Medical History (Updated 07/31/25 @ 11:59 by Terri Snell CNM) Anemia Surgical History History of lumpectomy of left breast (11/23/23) History of wisdom tooth extraction Family History (Updated 07/31/25 @ 11:10 by Barbi Quinn CMA) Mother Lung disease Father Stroke Maternal Aunt Pancreatic cancer Maternal Grandmother Diabetes Social History (Updated 07/31/25 @ 11:12 by Barbi Quinn CMA) Household Members: None Housing: House Alcohol intake: current Alcohol intake frequency: a few times a month Alcohol type: hard liquor Patient Tobacco Use Status: Never used Tobacco service: No Current occupational status: employed Current occupation: [employer] Sexual orientation: Straight/Heterosexual Gender identity: Female Cognitive needs: No Hearing needs: No Vision needs: No Female Reproductive History Menstrual Age of Menarche: 13 Duration of menses: 6-7 days Date of last menstrual period: 07/17/25 control method: condoms Total pregnancies: 0 Date of last pap smear: 07/25/24 Physical Exam Vital Signs: Last Vital Signs BP 110/66 07/31/25 11:03 BMI result Body Mass Index 23.2 Const General: healthy appearing, comfortable, no acute distress, well developed and alert Nutritional Appearance: average body habitus Orientation/consciousness: patient oriented x3 Limitations: no limitations HEENT Head: Yes normocephalic Neck Neck: Yes normal visual inspection Chest Chest palpation & inspection: normal inspection of the chest Breast/axilla inspection: normal inspection of the breasts and normal inspection of the axillae Breast/axilla palpation: normal palpation of the breasts and normal palpation of the axillae Resp Effort & Inspection: normal respiratory effort GI Inspection: Yes normal to inspection, No Abdominal wall edema and No distended Palpation (GI): Soft to palpation and nontender Other: External exam within normal limits vagina pink and clear and moist cervix is pink nulliparous clear with the beginnings of very fertile mucus coming through os cervix long close thick mobile nontender uterus midposition mobile nontender adnexa nontender nonenlarged and very good muscle tone. General: Yes bladder normal to palpation External Female Exam: normal external appearance and normal appearance of the urethra Speculum Exam - Vagina: normal appearance of the vagina, normal palpation and normal vaginal discharge Speculum Exam - Cervix: normal appearance of the cervix, normal palpation and nontender Bimanual exam- vagina & uterus: normal bimanual exam, normal palpation, uterine size normal, bladder normal to palpation, consistency normal, normal palpation, uterine mobility normal, uterine shape normal, No Cervical tenderness present, non-tender and no cervical motion tenderness Bimanual Exam- Adnexa, other: normal adnexae, no masses, normal and No adnexal tenderness Neuro General: patient oriented x3 Assessment & Plan Assessment & Plan (1) Screening for cervical cancer: Comment: 07/25/2024 Pap is negative. Code(s): Z12.4 - Encounter for screening for malignant neoplasm of cervix Category: Medical (2) Well woman exam with routine gynecological exam: Code(s): Z01.419 - Encounter for gynecological examination (general) (routine) without abnormal findings Category: Medical (3) Uses condoms for control: Code(s): Z78.9 - Other specified health status Category: Social Hx (4) Anemia: Code(s): D64.9 - Anemia, unspecified Category: Medical (5) Encounter for screening examination for sexually transmitted disease: Code(s): Z11.3 - Encounter for screening for infections with a predominantly sexual mode of transmission Category: Medical (6) History of lumpectomy of left breast: Onset Date: 11/23/23 Comment: Montez Stewart MD Code(s): Z98.890 - Other specified postprocedural states Category: Surgical Plan -----Discussed in this visit the following: healthy balanced diet, regular and consistent exercise, getting recommended health screens, doing the best she can for her particular health concerns, kegel exercises, pap smear screening and followup recommendations, mammography screening and SBE, normal changes in cycles in her life stage--- . She is not due for Pap discussed vaginal self-care she has found a regime that is working well for her. Discussed the occasional folliculitis that can occur from shaving or other methods of hair removed. Discussed her past use of control pills offered consideration of either control patch or NuvaRing for consideration if her menses become heavier or problematic for her or if a recheck of her blood count reveals that she is becoming more anemic.. She has an appointment coming up in September with her primary care provider offered screens for STIs and ordered. If she decided she wanted hormonal control she could make an appointment for now she will stick with what she has got and do her research. RTC 1 year she is on the portal and we will be able to check her results herself. Orders: Orders Hepatitis C Antibody Today Z01.419 - Encounter for gynecological examination (general) (routine) without abnormal findings, Z12.4 - Encounter for screening for malignant neoplasm of cervix, Z78.9 - Other specified health status Bacterial Vaginosis Panel Today Z11.3 - Encounter for screening for infections with a predominantly sexual mode of transmission Hepatitis B Surface Antigen Today Z01.419 - Encounter for gynecological examination (general) (routine) without abnormal findings, Z12.4 - Encounter for screening for malignant neoplasm of cervix, Z78.9 - Other specified health status HIV Ab/Ag Today Z01.419 - Encounter for gynecological examination (general) (routine) without abnormal findings, Z12.4 - Encounter for screening for malignant neoplasm of cervix, Z78.9 - Other specified health status Syphilis Screen Today Z01.419 - Encounter for gynecological examination (general) (routine) without abnormal findings, Z12.4 - Encounter for screening for malignant neoplasm of cervix, Z78.9 - Other specified health status Complete Blood Count no Diff Today D64.9 - Anemia, unspecified, Z01.419 - Encounter for gynecological examination (general) (routine) without abnormal findings, Z12.4 - Encounter for screening for malignant neoplasm of cervix, Z78.9 - Other specified health status CT NG by PCR Vag/Cerv Today Z11.3 - Encounter for screening for infections with a predominantly sexual mode of transmission Coding Level of Care Code Est Pt Prev Care 18-39y(96416) Diagnoses Screening for cervical cancer Z12.4 Well woman exam with routine gynecological exam Z01.419 Uses condoms for control Z78.9 Anemia D64.9 Encounter for screening examination for sexually transmitted disease Z11.3 History of lumpectomy of left breast Z98.890
--- OUTSIDE RECORDS SUMMARY | 2025-07-31 13:35 | XMS_ITS | Encounter Summary ---
Author Organization [facility] Address [address] [place] [id number] Care Team Providers Care Communications Designer Name Role Phone Unavailable Primary Care Provider Unavailabl e Encounter Details Date Type Department Care Team (Latest Contact Info) Description 09/12/2020 Lab Requisition [facility] [address] Through [address] [place] [address] [address] [place] [address] Frederic Arce PA-C [address] [place] [id number] Encounter for laboratory testing for COVID-19 virus Social History Tobacco Use Types Packs/Day Years Used Date Smoking Tobacco: Never Assessed Comments Unknown Sex and Gender Information Value Date Recorded Sex Assigned at Not on file Legal Sex Female 5:34 PM EST Gender Identity Not on file Sexual Orientation Not on file documented as of this encounter Plan of Treatment Not on file documented as of this encounter Procedures Procedure Name Priority Date/Time Associated Diagnosis Comments (REPORT) SARS COV-2 RNA (COVID-19), QUAL Routine 09/12/2020 5:36 PM EST Encounter for laboratory testing for COVID-19 virus [ICD-10-CM] documented in this encounter Results * SARS CoV-2 RNA (COVID-19), Qual (09/12/2020 5:36 PM EST) SARS CoV 2 RNA, Qual NOT DETECTED NOT DETECTED 09/15/2020 2:00 PM EST [facility] Comment: A Not Detected (negative) test result for this test means that SARS-CoV-2 RNA was not present in the specimen above the limit of detection. A negative result does not rule out the possibility of COVID-19 and should not be used as the sole basis for treatment or patient management decisions. If COVID-19 is still suspected, based on exposure history together with other clinical findings, re-testing should be considered in consultation with public health authorities. Laboratory test results should always be considered in the context of clinical observations and epidemiological data in making a final diagnosis and patient management decisions. REFERENCE RANGE: NOT DETECTED This patient specimen was tested using an FDA EUA pooling method. Negative results from pooled testing should not be treated as definitive. If the patient's clinical signs and symptoms are inconsistent with a negative result or results are necessary for patient management, then the patient should be considered for individual testing. Specimens with low viral loads may not be detected in sample pools due to the decreased sensitivity of pooled testing. Please review the Fact Sheets and FDA authorized labeling available for health care providers and patients using the following websites: https://www.EasilyDo.Tapstream/home/Covid-19/HCP/QuestLDTP/ fact-sheet https://www.EasilyDo.Tapstream/home/Covid-19/Patients/QuestLDTP/ fact-sheet.html This test has been authorized by the FDA under an Emergency Use Authorization (EUA) for use by authorized laboratories. Due to the current public health emergency, [facility] is receiving a high volume of samples from a wide variety of swabs and media for COVID-19 testing. In order to serve patients during this public health crisis, samples from appropriate clinical sources are being tested. Negative test results derived from specimens received in non-commercially manufactured viral collection and transport media, or in media and sample collection kits not yet authorized by FDA for COVID-19 testing should be cautiously evaluated and the patient potentially subjected to extra precautions such as additional clinical monitoring, including collection of an additional specimen. Methodology: Nucleic Acid Amplification Test (NAAT) includes RT-PCR or TMA Additional information about COVID-19 can be found at the [facility] website: www.CarRentalsMarket.Tapstream/Covid19. Microbiology Nasopharyngeal swab / Unknown 09/12/2020 5:36 PM EST 09/12/2020 5:36 PM EST Abigail [facility] - 09/15/2020 2:00 PM EST Performing Organization Information: Site ID: [id number] Name: [email or web address] Address: [address] [place] [address],[place] [address] Director: ALIS GAFFNEY MD [facility] number [id number] Frederic Arce PA-C BODY FLUIDS AND STOOLS OR DERABLES Final Result Performing Organization Address City/State/[facility] Co de Phone Number [facility] documented in this encounter Visit Diagnoses Diagnosis Encounter for laboratory testing for COVID-19 virus documented in this encounter
--- OUTSIDE RECORDS SUMMARY | 2025-07-31 13:35 | XMS_ITS | Encounter Summary ---
Author Organization [facility] Address [address] [place] [address] Care Team Providers Care Occupational Analyst Name Role Phone Unavailable Primary Care Provider Unavailabl e Encounter Details Date Type Department Care Team (Latest Contact Info) Description 11/[facility] [address] [place] [address] [address] [place] [address] Frederic Arce PA-C [address] [place] [id number] Encounter for laboratory testing for COVID-19 virus [...] Procedure Name Priority Date/Time Associated Diagnosis Comments COVID-19 (SARS-COV-2) - [facility] Routine 11/02/2020 12:09 PM EST Encounter for laboratory testing for COVID-19 virus [ICD-10-CM] documented in this encounter Results * COVID-19 (SARS-COV-2) ([facility]) (11/02/2020 12:09 PM EST) COVID-19 RT-PCR NOT-DETEC ROMIE Not-Detec romie 11/03/2020 7:48 PM EST [facility] Comment:Interpretation: The viral RNA was not detected, making the COVID-19 diagnosis less likely. Clinical correlation is highly recommended.Final report signed by Ankit Diggs, Ph.D., Laboratory DirectorTests performed at [facility] Microbiology Nasopharyngeal swab / Unknown 11/02/2020 12:09 PM EST 11/02/2020 12:09 PM EST Narrative [facility] MARIBEL Monk [facility] - 11/03/2020 7:48 PM EST Performed by [facility] [address] [place] [address], CLIA# [id number] and [place] License# [id number] Frederic Arce PA-C MICROBIOLOGY - GENERAL OR DERABLES Final Result [facility]OPE[facility] FAR[facility] documented in this encounter Visit Diagnoses Diagnosis Encounter for laboratory testing for COVID-19 virus documented in this encounter
--- OUTSIDE RECORDS SUMMARY | 2025-07-31 13:35 | XMS_ITS | Clinical Summary ---
Author Organization [facility] Address [address] [place] [address] Care Team Providers Care Bottle Hop Name Role Phone Unavailable Primary Care Provider Unavailabl e Social History Tobacco Use Types Packs/Day Years Used Date Smoking Tobacco: Never Assessed Comments Unknown Sex and Gender Information Value Date Recorded Sex Assigned at Not on file Legal Sex Female 5:34 PM EST Gender Identity Not on file Sexual Orientation Not on file Plan of Treatment Health Maintenance Due Date Last Done Comments Hepatitis C Virus Screening 1996 HIV Screening 2009 DTaP/Tdap/Td Vaccines (1 - Tdap) 2015 Hepatitis B Vaccines (1 of 3 - 19+ 3-dose series) 2015 COVID-19 Vaccine (2023-2 5 season) 2025 HPV Vaccines (No Doses Required) Completed Pneumococcal Vaccine: Pediat tasia (0-5 Years) and At-Risk Patients (6 to 49 Years) Aged Out No longer eligible b ased on patient's age to complete this topic
--- OUTSIDE RECORDS SUMMARY | 2025-07-31 13:35 | XMS_ITS | Clinical Summary ---
Author Organization [facility] Address [address] [place] [address] Care Team Providers Care Packaging Inspector Name Role Phone Unavailable Primary Care Provider Unavailabl e Source Comments PLEASE NOTE, if this patient is a minor, it may be UNLAWFUL to discuss sensitive information that is contained in these records (such as FAMILY PLANNING, MENTAL HEALTH or SUBSTANCE ABUSE) with the minor patient's parent or other person without the patient's specific authorization.[facility] Social History Tobacco Use Types Packs/Day Years Used Date Smoking Tobacco: Never Assessed Social Connections Answer Date Recorded Social Connections and Isolation 0 05/25/2021 Financial Resource Strain Answer Date R ecorded Financial Resource Strain 0 2020 Stress Answer Date Recorded Stress 0 05/25/2021 Physical Activity Answer Date Recorded Physical Activity 0 05/25/2021 Food Insecurity Answer Date Recorded Food 0 05/25/2021 Transportation Needs Answer Date Record ed Transportation 0 05/25/2021 Housing Stability Answer Date Recorded Housing 0 05/25/2021 Safety and Environment Answer Date Stanislaw rded Safety 0 05/25/2021 Utilities Answer Date Recorded Utilities 0 05/25/2021 Employment Answer Date Recorded Employment 0 05/25/2021 Comments Unknown Sex and Gender Information Value Date Recorded Sex Assigned at Not on file Legal Sex Female 8:56 AM PDT Gender Identity Not on file Sexual Orientation Not on file Plan of Treatment Not on file
--- OUTSIDE RECORDS SUMMARY | 2025-07-31 13:35 | XMS_ITS | Clinical Summary ---
Author Organization [facility] ity Address [address] [place] [address] Care Team Providers Care Cook Starch Name Role Phone Maame Swain MD Primary Care Provider [phone] Social History Tobacco Use Types Packs/Day Years Used Date Smoking Tobacco: Never Assessed Comments Unknown Sex and Gender Information Value Date Recorded Sex Assigned at Not on file Legal Sex Female 4:23 AM EST Gender Identity Not on file Sexual Orientation Not on file Plan of Treatment Health Maintenance Due Date Last Done Comments DTaP,Tdap,and Td Vaccines (1 - Tdap) 2015 Hepatitis B Vaccines (1 of 3 - 19+ 3-dose series) 2015 Cervical Cancer Screening: P ap Smear 2017 HPV Vaccines (1 - 3-dose SCD M series) 2023 Depression Screening 10/17/2024 COVID-19 Vaccine (1 - 2023-2 5 season) 2025 Influenza Vaccine (#1) 2025 RSV Immunization Adult Patie nts (1 - 1-dose 75+ series) 2071 HIB Vaccines Aged Out No longer eligi ble based on patient's age to complete this topic Hepatitis A Vaccines Aged Out No long er eligible based on patient's age to complete this topic IPV Vaccines Aged Out No longer eligi ble based on patient's age to complete this topic MMR Vaccines Aged Out No longer eligi ble based on patient's age to complete this topic Meningococcal ACWY Vaccine Aged Out N o longer eligible based on patient's age to complete this topic Meningococcal B Vaccine Aged Out No l onger eligible based on patient's age to complete this topic Pneumococcal Vaccine: Pediat rics (0 to 5 Years) and At-Risk Patients (6 to 49 Years) Aged Out No longer eligible b ased on patient's age to complete this topic RSV Immunization Patients Un zaira 20 months Aged Out No longer eligible b ased on patient's age to complete this topic Varicella Vaccines Aged Out No longer eligible based on patient's age to complete this topic Care Teams Cook Starch Relationship Specialty Start Date End Date Maame Swain MD [address] [place] [address] , [address] [facility] D/B/A: [facility]at[facility] [place] PCP - General 11/15/23
--- OUTSIDE RECORDS SUMMARY | 2025-07-31 13:35 | XMS_ITS | Clinical Summary ---
Author Organization [facility] Address [address] [phone] Phone Care Team Providers Care Winch Stripper Name Role Phone Unknown, Unknown Primary Care Provider Michelle lovelace Immunizations Immunization Administration Dates Next Due COVID-19 (Pre-08/08) Pfizer Vaccine, mRNA, PF 09/17/2021,08/18/2021 Hepatitis B Adult 07/02/1997,1996,09/11/19 96 Influenza Quadrivalent Preservative Free IM /05/2023 MMR 06/19/2002,12/17/1997 Tdap 07/07/2009 Varicella 07/07/2009,04/10/2002 Social History Tobacco Use Types Packs/Day Years Used Date Smoking Tobacco: Never Assessed Education Answer Date Recorded Are you interested in more education? Not on kylee e 03/24/2023 Are you concerned about learning? Not on file 03/24/2023 No 03/24/2023 No 03/24/2023 Digital Access Answer Date Recorded No 03/24/2023 No 03/24/2023 Reliable internet access at home? Not on file 03/24/2023 Device with a working camera? Not on file Comments Unknown Sex and Gender Information Value Date Recorded Sex Assigned at Not on file Legal Sex Female 5:57 PM EDT Gender Identity Not on file Sexual Orientation Not on file Plan of Treatment Health Maintenance Due Date Last Done Comments DEPRESSION SCREENING 2008 SMOKING Hx and SMOKELESS TOBACCO SCREENING 2009 HEPATITIS C SCREENING 2014 HIV ONE-TIME SCREENING (18-6 5 YEARS) 2014 PAP SMEAR 2017 Adult Td,Tdap Booster 07/07/2019 07/07/2009 INFLUENZA VACCINE (#1) 2025 07/24/2023 COVID-19 VACCINE (2024-2 6 season) 2025 09/17/2021, 08/18/2021 HEPATITIS A VACCINES Aged Out No long er eligible based on patient's age to complete this topic HIB VACCINES Aged Out No longer eligi ble based on patient's age to complete this topic MENINGOCOCCAL VACCINES (ACWY) Aged Out No longer eligible based on patient's age to complete this topic MENINGOCOCCAL VACCINES (B) Aged Out N o longer eligible based on patient's age to complete this topic PNEUMOCOCCAL VACCINES (0-49 years) Aged Out No longer eligible b ased on patient's age to complete this topic Medical Devices Not on file Insurance [employer] PPO [employer] PPO [employer] PPO CIGNA PPO CIGNA PPO CIGNA PPO Care Teams Winch Stripper Relationship Specialty Start Date End Date Unknown, Unknown, PCP - General 03/25/23 Additional Source Comments The information contained in this document represents components of the legal health record. It is not the complete legal health record.[facility]
== END 2025-07-31 12:01 | disposition home or self-care (01) ==
LOC: HO.HWSM 11:02
PROVIDERS: PCP Internal Medicine; Visit Provider Advanced Practice Midwife
DX: Z01.419 Encounter for gynecological examination (general) (routine) without abnormal findings (principal); D64.9 Anemia, unspecified; Z11.3 Encounter for screening for infections with a predominantly sexual mode of transmission; Z98.890 Other specified postprocedural states; Z78.9 Other specified health status
CPT/HCPCS: 99395; 99459

== ENCOUNTER 2025-07-31 11:02 | Outpatient (REF) | payer MEDICAID, SELFPAY ==
[2025-07-31 13:27] LABS: Hematocrit 34.5 % (37.0-47.0); Hemoglobin 11.9 g/dl (12.0-16.0); Mean Corpuscular HGB Conc 34.5 g/dl (31.0-35.0); Mean Corpuscular Hemoglobin 27.9 pg (27.0-33.0); Mean Corpuscular Volume 81.0 fL (80.0-98.0); NRBC Abs Auto 0.000 X10*3/uL (0.0-0.012); NRBC Pct Auto 0.0 /100WBC (0.0-0.2); Platelet Count 249 X10*3/uL (160-400); Red Blood Count 4.26 X10*6/uL (4.20-5.50); White Blood Count 3.7 X10*3/uL (4.8-10.8)
--- OUTSIDE RECORDS SUMMARY | 2025-07-31 15:16 | XMS_ITS ---
Author Name [facility] Organization Unknown Encounters Encounter Type Encounter Reason Primary Diagnosis Location Date [facility] 10/18/2024 [facility] 10/18/2024
[2025-08-01 04:18] LABS: Syphilis Screen Nonreactive (Nonreactive)
[2025-08-01 04:42] LABS: HBsAGNum1 0.31 S/CO (0.00-0.99); HIV Num 1 0.06 S/CO (0.00-0.99); Hepatitis B Surface Antigen Negative (Negative); ~HepC Num1 0.20 S/CO (0.00-0.79); ~Hepatitis C Antibody Nonreactive (Nonreactive)
[2025-08-01 04:52] LABS: Bacterial Vaginosis PCR NEGATIVE (Negative); Candida Group PCR NOT DETECTED (Not Detect); Candida glab krusei PCR NOT DETECTED (Not Detect); Trichomonas vaginalis PCR NOT DETECTED (Not Detect)
[2025-08-01 05:22] LABS: CT PCR NOT DETECTED (Not Detect.); NG PCR NOT DETECTED (Not Detect.)
== END 2025-07-31 11:03 | disposition home or self-care (01) ==
LOC: HO.LNP 11:02
PROVIDERS: PCP Internal Medicine; Visit Provider Advanced Practice Midwife
DX: Z01.419 Encounter for gynecological examination (general) (routine) without abnormal findings (principal); D64.9 Anemia, unspecified; Z20.2 Contact with and (suspected) exposure to infections with a predominantly sexual mode of transmission; Z98.890 Other specified postprocedural states; Z78.9 Other specified health status; Z11.4 Encounter for screening for human immunodeficiency virus [HIV]; Z11.59 Encounter for screening for other viral diseases
CPT/HCPCS: 81515; 85027; 86780; 86803; 87340; 87389; 87491; 87591; 99395; 99459

== ENCOUNTER 2025-07-31 12:06 | Outpatient (REF) | payer MEDICAID, SELFPAY | END 2025-07-31 12:07 | disposition home or self-care (01) | LOC: HO.HHCL 12:06 | PROVIDERS: PCP Internal Medicine; Visit Provider Advanced Practice Midwife | DX: Z13.89 Encounter for screening for other disorder (principal) ==